=== PATIENT | female | born 1940 | race Caucasian/White ===

== ENCOUNTER 2020-06-26 13:22 | Emergency (ER) | payer MEDICARE, OTHER ==
[~2020-06-26] VITALS: Ht 162.6 cm; Wt 75.0 kg
--- NOTE | 2020-06-26 13:53 | NUR ---
ATTEMPTED TO CALL [facility] [phone] FOR PTS MED LIST TO SEE WHAT HER NEW HTN MED IS. PHARMACY IS CLOSED UNTIL 1400 AND I WILL CALL BACK THEN, UPDATED.
[2020-06-26 14:06] LABS: BASOPHILS % (AUTO) 0.3 % (0-1); EOSINOPHILS % (AUTO) 0.3 % (0-6); HEMATOCRIT 36.2 % (35.0-45.0); HEMOGLOBIN 12.3 g/dl (12.0-16.0); LYMPHOCYTES # (AUTO) 0.8 X10'3 (1.1-4.8); LYMPHOCYTES % (AUTO) 11.4 % (21-51); MEAN CORPUSCULAR HEMOGLOBIN 29.7 PG (27.0-31.0); MEAN CORPUSCULAR HGB CONC 34.1 g/dL (33.0-36.5); MEAN CORPUSCULAR VOLUME 87.1 FL (78-98); MEAN PLATELET VOLUME 7.6 FL (7.4-10.4); MONOCYTES # (AUTO) 0.5 X10'3 (0-0.9); NEUTROPHILS # (AUTO) 5.9 X10'3 (1.8-7.7); PLATELET COUNT 221 X10'3 (140-440); RED BLOOD COUNT 4.16 X10'6 (4.20-5.60); RED CELL DISTRIBUTION WIDTH 13.6 % (11.5-14.5); WHITE BLOOD COUNT 7.3 X10'3 (4.5-11.0)
[2020-06-26 14:08] LABS: PARTIAL THROMBOPLASTIN TIME 28 SECONDS (22-32)
[2020-06-26 14:10] LABS: ALANINE AMINOTRANSFERASE 19 U/L (12-78); ALBUMIN 3.4 G/DL (3.4-5.0); ALBUMIN/GLOBULIN RATIO 1.4 (1.1-1.5); ALKALINE PHOSPHATASE 67 IU/L (46-116); ANION GAP 7 (8-16); ASPARTATE AMINO TRANSFERASE 15 U/L (10-37); BILIRUBIN,TOTAL 0.4 MG/DL (0.1-1.0); BLOOD UREA NITROGEN 21 MG/DL (7-18); BUN/CREATININE RATIO 23.3 (6.6-38.0); CALCIUM 8.2 MG/DL (8.5-10.1); CHLORIDE 92 MMOL/L (99-107); GLUCOSE 97 MG/DL (70-104); POTASSIUM 3.3 MMOL/L (3.5-5.1); SODIUM 124 MMOL/L (135-145); TOTAL CARBON DIOXIDE 24.9 MMOL/L (24-32); TOTAL PROTEIN 5.9 G/DL (6.4-8.2); eGFR 60 ML/MIN
--- NOTE | 2020-06-26 14:11 | NUR ---
SPOKE WITH [facility] WHO WILL FAX PT MED LIST.
[2020-06-26 14:18] LABS: MAGNESIUM 1.6 MG/DL (1.5-2.4)
--- NOTE | 2020-06-26 14:23 | NUR ---
RECIEVED FAX FROM PHARMACY, NEW MEDS OF HYDRALAZINE BID AND PAXIL. ADVISED.
[2020-06-26] MEDS ORDERED: potassium Cl 20 mEq SR tablet PO STA (14:27)
--- NOTE | 2020-06-26 14:27 | NUR ---
PT AMBULATED AROUND DEPARTMENT WITHOUT DIFFICULTY OR DIZZINESS NOTED.
[2020-06-26] MEDS ORDERED: magnesium oxide 400mg tablet PO ONE (14:30)
[2020-06-26 14:51] VITALS: BP 169/65
== END 2020-06-26 14:55 | disposition home or self-care (01) ==
LOC: ER 13:23
DX: E87.1 Hypo-osmolality and hyponatremia (principal); R55 Syncope and collapse; I10 Essential (primary) hypertension; R42 Dizziness and giddiness
CPT/HCPCS: 36415; 71045; 80053; 83735; 83880; 84484; 85025; 85610; 85730; 93005; 99285